=== PATIENT | female | born 1950 | race Caucasian/White ===

== ENCOUNTER 2018-03-05 07:33 | Inpatient (IN) | payer OTHER, MEDICAID ==
[~2018-03-05] VITALS: Ht 160 cm; Wt 87.1 kg
[2018-03-05 09:11] LABS: Basophils # (auto) 0.1 uL; Basophils % (auto) 0.6 % (0.0-2.0); Eosinophils # (auto) 0.1 uL; Eosinophils % (auto) 0.7 % (0.0-7.0); Hematocrit 45.7 % (36.0-46.0); Hemoglobin 15.3 g/dL (12.2-16.2); Lymphocytes # (auto) 1.7 uL; Lymphocytes % (auto) 20.3 % (10.0-50.0); Mean Corpuscular Hemoglobin 31.3 pg (28.0-32.0); Mean Corpuscular Hgb Conc. 33.6 g/dL (32.0-36.0); Mean Corpuscular Volume 93.2 fL (80.0-100.0); Monocytes # (auto) 0.4 uL; Neutrophils # (auto) 6.3 uL; Neutrophils % (auto) 73.4 % (37.0-80.0); Platelet Count (auto) 206 10^3/uL (140-450); Red Cell Distribution Width 13.5 % (11.8-14.3); White Blood Cell 8.5 10^3/uL (4.4-10.8)
[2018-03-05 09:29] LABS: Urine Bacteria NONE SEEN /hpf (None Seen); Urine Blood Negative /uL (Negative); Urine Specific Gravity 1.038 (1.001-1.035); Urine WBC 1 /hpf (0 - 5)
[2018-03-05 09:31] LABS: Alanine Aminotransferase 12 U/L (13-56); Albumin 3.5 g/dL (3.4-5.0); Alkaline Phosphatase 94 U/L (45-117); Anion Gap 10 (5-15); Aspartate Aminotransferase 13 U/L (15-37); BUN/Creatinine Ratio 16.8; Bilirubin, Total 0.3 mg/dL (0.2-1.0); Blood Urea Nitrogen 20 mg/dL (7-18); Calcium 8.4 mg/dL (8.5-10.1); Carbon Dioxide 22 mmol/L (21-32); Chloride 103 mmol/L (98-107); GFR African American 58 mL/min; GFR Non-African American 48 mL/min; Magnesium 2.2 mg/dL (1.6-2.6); Potassium 4.4 mmol/L (3.5-5.1); Sodium 135 mmol/L (136-145); Total Protein 7.2 g/dL (6.4-8.2)
[2018-03-05 09:39] LABS: Glucose 492 mg/dL (74-106)
[2018-03-05] MEDS ORDERED: SODIUM CHLORIDE 0.9% 1,000 ML IV ONE (09:48)
[2018-03-05 10:32] LABS: INR 0.92 (0.9-1.15); Prothrombin Time 9.9 sec (9.27-12.13)
[2018-03-05] MEDS ORDERED: SODIUM CHLORIDE 0.9% 1,000 ML IV SCH ×2 (11:19→13:50)
[2018-03-05] MEDS ORDERED: ACETAMINOPHEN 500 MG TAB PO PRN (11:30)
[2018-03-05] MEDS ORDERED: PROMETHAZINE HCL 25 MG/ML 1ML IV PRN (11:30)
[2018-03-05] MEDS ORDERED: NITROGLYCERIN 0.4 MG SL TAB SL PRN (11:30)
[2018-03-05] MEDS ORDERED: MORPHINE SULFATE 8mg/ml INJ SDV IV PRN ×2 (11:30)
[2018-03-05] MEDS ORDERED: DEXTROSE (50%) 50ML SYRG IV PRN (11:30)
[2018-03-05] MEDS ORDERED: HYDROcodone-ACET 5/325MG TAB PO PRN (11:30)
[2018-03-05] MEDS ORDERED: LEVOFLOXACIN 500MG 100 ML IV ONE (11:45)
[2018-03-05] MEDS ORDERED: PANTOPRAZOLE 40 MG TAB PO ONE (11:45)
[2018-03-05] MEDS: ACCU-CHEK COMFORT CURVE STRIP VI SCH ×2 (12:05→16:03)
[2018-03-05] MEDS ORDERED: metroNIDAZOLE 500MG/100ML 100 ML IV SCH (14:00)
[2018-03-05 14:27] LABS: Hematocrit 42.4 % (36.0-46.0)
[2018-03-05 14:41] VITALS: BP 142/83
[2018-03-06] MEDS ORDERED: PANTOPRAZOLE 40 MG TAB PO SCH (10:00)
[2018-03-06] MEDS ORDERED: LEVOFLOXACIN 500MG 100 ML IV SCH (10:00)
== END 2018-03-05 16:41 | disposition left against medical advice (07) | DRG 378 ==
LOC: ER 07:37 → TELE 07:38
PROVIDERS: ADMIT Internal Medicine; ATTEND Internal Medicine
DX: K92.2 Gastrointestinal hemorrhage, unspecified (principal); A69.20 Lyme disease, unspecified; E11.21 Type 2 diabetes mellitus with diabetic nephropathy; K76.89 Other specified diseases of liver; E11.65 Type 2 diabetes mellitus with hyperglycemia; F41.9 Anxiety disorder, unspecified; Z53.21 Procedure and treatment not carried out due to patient leaving prior to being seen by health care provider; K52.3 Indeterminate colitis; I25.10 Atherosclerotic heart disease of native coronary artery without angina pectoris; F29 Unspecified psychosis not due to a substance or known physiological condition; I25.2 Old myocardial infarction; Z88.1 Allergy status to other antibiotic agents; Z88.8 Allergy status to other drugs, medicaments and biological substances
CPT/HCPCS: 36415; 71046; 74176; 80053; 81001; 82378; 83036; 83690; 83735; 84443; 84484; 85014; 85018; 85025; 85045; 85610; 85652; 85730; 86141; 86850; 86900; 86901; 93005; 94761; 96361; 96365; J3490

== ENCOUNTER 2018-07-28 00:04 | Inpatient (IN) | payer OTHER, MEDICAID ==
[~2018-07-28] VITALS: Ht 162.6 cm; Wt 94.3 kg
[2018-07-28] MEDS ORDERED: ACETAMINOPHEN 650 mg PER 20 mL UD PO ONE (00:30)
[2018-07-28] MEDS ORDERED: ACETAMINOPHEN 325 MG TAB PO ONE (00:30)
[2018-07-28] MEDS ORDERED: LEVOFLOXACIN 500MG 100 ML IV ONE (02:00)
[2018-07-28] MEDS ORDERED: PIPERACILLIN-TAZO 4.5GM 100 ML IV ONE (02:00)
[2018-07-28] MEDS ORDERED: SODIUM CHLORIDE 0.9% 2,000 ML IV ONE (02:00)
[2018-07-28 02:38] LABS: Platelet Count (auto) 76 10^3/uL (140-450)
[2018-07-28 02:39] LABS: Hematocrit 43.8 % (36.0-46.0); Hemoglobin 14.1 g/dL (12.2-16.2); Mean Corpuscular Hgb Conc. 32.2 g/dL (32.0-36.0); Mean Corpuscular Volume 82.7 fL (80.0-100.0); Red Blood Cells 5.29 10^6/uL (4.0-5.20); Red Cell Distribution Width 18.6 % (11.8-14.3); White Blood Cell 13.8 10^3/uL (4.4-10.8)
[2018-07-28 02:43] LABS: Mean Corpuscular Hemoglobin 26.8 pg (28.0-32.0)
[2018-07-28 02:52] LABS: Partial Thromboplastin Time 28.9 sec (23.78-33.04); Prothrombin Time 10.7 sec (9.27-12.13)
[2018-07-28 02:54] LABS: Basophils % (manual) 0 (0.0-2.0); Blast Cells 0; Eosinophils % (manual) 0 (0-7); Metamyelocytes % 0; Myelocytes % 0; Promyelocytes % 0; Reactive Lymphocytes 0
[2018-07-28 02:57] LABS: Amylase 18 U/L (25-115); Lipase 81 U/L (73-393)
[2018-07-28 02:58] LABS: Albumin 2.3 g/dL (3.4-5.0); BUN/Creatinine Ratio 24.7; Calcium 8.6 mg/dL (8.5-10.1); Magnesium 1.9 mg/dL (1.6-2.6); Potassium 3.7 mmol/L (3.5-5.1)
[2018-07-28 03:03] LABS: Bilirubin, Total 0.6 mg/dL (0.2-1.0); Total Protein 6.9 g/dL (6.4-8.2)
[2018-07-28 03:45] LABS: Band Neutrophils % (manual) 6; Lymphocytes % (manual) 2 (10.0-50.0); Monocytes % (manual) 4 (0-12)
[2018-07-28] MEDS ORDERED: diphenhdrAMINE HCL 25 MG CAP PO ONE ×2 (03:57→04:00)
[2018-07-28 05:44] LABS: Urine Bacteria MANY /hpf (None Seen); Urine Blood TRACE /uL (Negative); Urine Mucus FEW (None Seen); Urine Specific Gravity 1.017 (1.001-1.035); Urine WBC 39 /hpf (0 - 5)
[2018-07-28] MEDS ORDERED: HYDROcodone-ACET 5/325MG TAB PO PRN (07:00)
[2018-07-28] MEDS ORDERED: DEXTROSE (50%) 50ML SYRG IV PRN ×2 (07:00→12:45)
[2018-07-28] MEDS ORDERED: ONDANSETRON HCL 4 MG/2 ML VIAL IV PRN (07:00)
[2018-07-28] MEDS ORDERED: ACETAMINOPHEN 325 MG TAB PO PRN (07:00)
[2018-07-28] MEDS: SODIUM CHLORIDE 0.9% 1,000 ML IV SCH ×2 (07:35→18:12)
[2018-07-28] MEDS: FAMOTIDINE 20 MG TAB PO SCH ×2 (11:09→22:00)
[2018-07-28] MEDS: LEVOFLOXACIN 500MG 100 ML IV SCH (11:09)
[2018-07-28] MEDS ORDERED: ACCU-CHEK COMFORT CURVE STRIP VI SCH (12:00)
[2018-07-28] MEDS: metroNIDAZOLE 500MG/100ML 100 ML IV SCH ×2 (14:43→22:00)
[2018-07-28 17:00] VITALS: BP 142/70
[2018-07-28] MEDS: ACCU-CHEK COMFORT CURVE STRIP VI SCH ×2 (17:00→22:00)
[2018-07-28] MEDS: InsuLIN REG 1unit/0.01ml Soln (100units/ml) SC SCH ×2 (17:00→22:00)
[2018-07-28 17:15] VITALS: BP 142/70
[2018-07-28 22:00] VITALS: BP 110/58
[2018-07-28] MEDS ORDERED: INSULIN LANTUS (GLARGINE) 1 /0.01ml (100units/ml) SC SCH (22:00)
[2018-07-28] MEDS: SODIUM BICARBONATE 650 MG TAB PO SCH (22:00)
[2018-07-29 05:00] VITALS: BP 142/75
[2018-07-29 05:56] LABS: Basophils # (auto) 0 uL; Basophils % (auto) 0.4 % (0.0-2.0); Eosinophils # (auto) 0.1 uL; Eosinophils % (auto) 1.2 % (0.0-7.0); Hematocrit 44.6 % (36.0-46.0); Hemoglobin 14.5 g/dL (12.2-16.2); Lymphocytes # (auto) 0.7 uL; Lymphocytes % (auto) 8.8 % (10.0-50.0); Mean Corpuscular Hemoglobin 27.5 pg (28.0-32.0); Mean Corpuscular Hgb Conc. 32.5 g/dL (32.0-36.0); Mean Corpuscular Volume 84.5 fL (80.0-100.0); Monocytes # (auto) 0.6 uL; Monocytes % (auto) 8.1 % (0.0-12.0); Neutrophils # (auto) 6.3 uL; Neutrophils % (auto) 81.5 % (37.0-80.0); Platelet Count (auto) 76 10^3/uL (140-450); Red Blood Cells 5.28 10^6/uL (4.0-5.20); Red Cell Distribution Width 19.6 % (11.8-14.3); White Blood Cell 7.8 10^3/uL (4.4-10.8)
[2018-07-29] MEDS: metroNIDAZOLE 500MG/100ML 100 ML IV SCH ×3 (05:57→21:51)
[2018-07-29] MEDS: InsuLIN REG 1unit/0.01ml Soln (100units/ml) SC SCH ×4 (05:57→21:52)
[2018-07-29] MEDS: SODIUM CHLORIDE 0.9% 1,000 ML IV SCH ×2 (05:57→17:48)
[2018-07-29] MEDS: ACCU-CHEK COMFORT CURVE STRIP VI SCH ×4 (05:58→21:52)
[2018-07-29 06:21] LABS: Albumin 2.1 g/dL (3.4-5.0); Calcium 8.6 mg/dL (8.5-10.1); Potassium 3.5 mmol/L (3.5-5.1)
[2018-07-29 06:26] LABS: Bilirubin, Total 0.6 mg/dL (0.2-1.0); Total Protein 6.4 g/dL (6.4-8.2)
[2018-07-29 08:13] VITALS: BP_SYST 107; BP_SYST 115; BP_DIAS 65; BP_DIAS 68
[2018-07-29] MEDS: SODIUM BICARBONATE 650 MG TAB PO SCH ×2 (09:47→21:51)
[2018-07-29] MEDS: FAMOTIDINE 20 MG TAB PO SCH ×2 (09:47→21:51)
[2018-07-29] MEDS: LEVOFLOXACIN 500MG 100 ML IV SCH (09:48)
[2018-07-29 14:00] VITALS: BP 137/73
[2018-07-29 16:49] VITALS: BP 120/73
[2018-07-29 22:00] VITALS: BP 146/84
[2018-07-29] MEDS ORDERED: INSULIN LANTUS (GLARGINE) 1 /0.01ml (100units/ml) SC SCH (22:00)
[2018-07-30] MEDS: SODIUM CHLORIDE 0.9% 1,000 ML IV SCH (02:50)
[2018-07-30 04:51] VITALS: BP 176/88
[2018-07-30 04:58] VITALS: BP 133/72
[2018-07-30] MEDS: metroNIDAZOLE 500MG/100ML 100 ML IV SCH ×2 (05:30→14:12)
[2018-07-30 05:44] LABS: Hematocrit 38.7 % (36.0-46.0); Hemoglobin 12.7 g/dL (12.2-16.2); Mean Corpuscular Hemoglobin 27.2 pg (28.0-32.0); Mean Corpuscular Hgb Conc. 32.9 g/dL (32.0-36.0); Mean Corpuscular Volume 82.8 fL (80.0-100.0); Platelet Count (auto) 98 10^3/uL (140-450); Red Blood Cells 4.68 10^6/uL (4.0-5.20); Red Cell Distribution Width 19.6 % (11.8-14.3); White Blood Cell 6.4 10^3/uL (4.4-10.8)
[2018-07-30 05:51] LABS: Blast Cells 0; Myelocytes % 0; Promyelocytes % 0; Reactive Lymphocytes 0
[2018-07-30 06:02] LABS: BUN/Creatinine Ratio 17.7; Calcium 8.4 mg/dL (8.5-10.1); Potassium 3.4 mmol/L (3.5-5.1)
[2018-07-30] MEDS: InsuLIN REG 1unit/0.01ml Soln (100units/ml) SC SCH (06:26)
[2018-07-30] MEDS: ACCU-CHEK COMFORT CURVE STRIP VI SCH (06:27)
[2018-07-30 06:54] LABS: Band Neutrophils % (manual) 5; Basophils % (manual) 0 (0.0-2.0); Eosinophils % (manual) 2 (0-7); Lymphocytes % (manual) 29 (10.0-50.0); Metamyelocytes % 2; Monocytes % (manual) 8 (0-12)
[2018-07-30 09:00] VITALS: BP 127/66
[2018-07-30] MEDS ORDERED: PSYLLIUM PWD 6 GM PKG GT ONE (09:15)
[2018-07-30] MEDS ORDERED: CHLORPROPAMIDE PO SCH (10:00)
[2018-07-30] MEDS: LEVOFLOXACIN 500MG 100 ML IV SCH (10:24)
[2018-07-30] MEDS: FAMOTIDINE 20 MG TAB PO SCH (10:25)
[2018-07-30] MEDS: SODIUM BICARBONATE 650 MG TAB PO SCH (10:25)
[2018-07-30 13:00] VITALS: BP 157/82
[2018-07-30 17:00] VITALS: BP 148/79
== END 2018-07-30 17:45 | disposition home or self-care (01) | DRG 871 ==
LOC: EDUNIT# 00:04 → EDBD 00:04 → ER 00:06 → OVERFLOW 00:07 → WEST WING 17:02
PROVIDERS: ADMIT Nurse Practitioner; ATTEND Internal Medicine
DX: A41.9 Sepsis, unspecified organism (principal); E43 Unspecified severe protein-calorie malnutrition; N39.0 Urinary tract infection, site not specified; E87.1 Hypo-osmolality and hyponatremia; N85.00 Endometrial hyperplasia, unspecified; E86.0 Dehydration; E11.9 Type 2 diabetes mellitus without complications; K58.0 Irritable bowel syndrome with diarrhea; Z68.35 Body mass index [BMI] 35.0-35.9, adult; Z88.8 Allergy status to other drugs, medicaments and biological substances; I10 Essential (primary) hypertension; J44.9 Chronic obstructive pulmonary disease, unspecified; Z83.3 Family history of diabetes mellitus
CPT/HCPCS: 36415; 36600; 71045; 74176; 76856; 80048; 80053; 81001; 82150; 82805; 82962; 83605; 83690; 83735; 83880; 84484; 85007; 85025; 85027; 85610; 85730; 86141; 87040; 87077; 87086; 87186; 93005; 93306; 96361; 96365; 99291; G0378; J1956; J3490

== ENCOUNTER 2018-08-21 09:41 | Emergency (ER) | payer OTHER, MEDICAID ==
[~2018-08-21] VITALS: Ht 160 cm; Wt 79.4 kg
[~2018-08-21 09:41] MED LIST: [UNRECOGNIZED DRUG - CODE] PO
[2018-08-21 10:49] LABS: Basophils # (auto) 0 uL; Basophils % (auto) 0.6 % (0.0-2.0); Eosinophils # (auto) 0.1 uL; Eosinophils % (auto) 2.1 % (0.0-7.0); Hemoglobin 14.7 g/dL (12.2-16.2); Lymphocytes # (auto) 1.3 uL; Lymphocytes % (auto) 20.2 % (10.0-50.0); Mean Corpuscular Hemoglobin 28.7 pg (28.0-32.0); Mean Corpuscular Hgb Conc. 32.7 g/dL (32.0-36.0); Mean Corpuscular Volume 87.8 fL (80.0-100.0); Monocytes # (auto) 0.3 uL; Monocytes % (auto) 5.1 % (0.0-12.0); Neutrophils # (auto) 4.8 uL; Nucleated Red Blood Cells % 0.1 %; Platelet Count (auto) 236 10^3/uL (140-450); Red Blood Cells 5.12 10^6/uL (4.0-5.20); White Blood Cell 6.7 10^3/uL (4.4-10.8)
[2018-08-21 11:24] LABS: Red Cell Distribution Width 22.1 % (11.8-14.3)
[2018-08-21 11:34] LABS: Urine Bacteria NONE SEEN /hpf (None Seen); Urine Blood Negative /uL (Negative); Urine Mucus FEW (None Seen); Urine Specific Gravity 1.017 (1.001-1.035); Urine WBC 8 /hpf (0 - 5)
[2018-08-21 12:09] VITALS: BP 153/99
== END 2018-08-21 12:38 | disposition home or self-care (01) ==
LOC: ER 09:43
DX: Z45.2 Encounter for adjustment and management of vascular access device (principal); Z00.00 Encounter for general adult medical examination without abnormal findings; E11.9 Type 2 diabetes mellitus without complications; Z90.89 Acquired absence of other organs; Z88.1 Allergy status to other antibiotic agents; Z88.8 Allergy status to other drugs, medicaments and biological substances; Z88.6 Allergy status to analgesic agent
CPT/HCPCS: 36415; 81001; 82962; 85025

== ENCOUNTER 2018-09-02 04:55 | Emergency (ER) | payer OTHER, MEDICAID ==
[~2018-09-02] VITALS: Ht 160 cm; Wt 77.1 kg
[2018-09-02 05:00] VITALS: BP 153/91
[2018-09-02] MEDS ORDERED: KETOROLAC TROMETH 30 MG/ML 1ML VIAL IM ONE (07:00)
[2018-09-02] MEDS ORDERED: HYDROcodone-ACET 5/325MG TAB PO ONE (07:00)
[2018-09-02] MEDS ORDERED: SODIUM CHLORIDE 0.9% 2,000 ML IV ONE (07:34)
[2018-09-02] MEDS ORDERED: InsuLIN REG 1unit/0.01ml Soln (100units/ml) IV ONE (07:45)
== END 2018-09-02 08:15 | disposition home or self-care (01) ==
LOC: ER 04:59
DX: M54.41 Lumbago with sciatica, right side (principal); E11.9 Type 2 diabetes mellitus without complications; Z98.890 Other specified postprocedural states; Z88.1 Allergy status to other antibiotic agents; Z88.6 Allergy status to analgesic agent; Z88.8 Allergy status to other drugs, medicaments and biological substances
CPT/HCPCS: 72131; 73700; 82962; 96372; 96374; 99284; J1885

== ENCOUNTER 2018-09-03 09:21 | Emergency (ER) | payer OTHER, MEDICAID ==
[~2018-09-03] VITALS: Ht 175.3 cm; Wt 77.1 kg
[2018-09-03 09:55] VITALS: BP 144/91
[2018-09-03] MEDS ORDERED: NALBUPHINE HCL 10 MG/1ml INJECTION IM ONE (10:45)
== END 2018-09-03 11:15 | disposition home or self-care (01) ==
LOC: ER 09:24
DX: M48.061 Spinal stenosis, lumbar region without neurogenic claudication (principal); M54.16 Radiculopathy, lumbar region; E11.9 Type 2 diabetes mellitus without complications; Z88.1 Allergy status to other antibiotic agents; Z88.6 Allergy status to analgesic agent; Z88.8 Allergy status to other drugs, medicaments and biological substances
CPT/HCPCS: 93005; 96372; 99283; J2300

== ENCOUNTER 2018-09-28 08:53 | Emergency (ER) | payer OTHER, MEDICAID ==
[~2018-09-28] VITALS: Ht 162.6 cm; Wt 68.9 kg
[2018-09-28 09:14] VITALS: BP 169/106
[2018-09-28 09:49] LABS: Basophils # (auto) 0 uL; Basophils % (auto) 0.5 % (0.0-2.0); Eosinophils # (auto) 0.1 uL; Eosinophils % (auto) 0.9 % (0.0-7.0); Hematocrit 50.2 % (36.0-46.0); Hemoglobin 16.4 g/dL (12.2-16.2); Lymphocytes # (auto) 1.2 uL; Lymphocytes % (auto) 19.2 % (10.0-50.0); Mean Corpuscular Hemoglobin 29.4 pg (28.0-32.0); Mean Corpuscular Hgb Conc. 32.7 g/dL (32.0-36.0); Mean Corpuscular Volume 89.9 fL (80.0-100.0); Monocytes # (auto) 0.3 uL; Monocytes % (auto) 4.8 % (0.0-12.0); Neutrophils # (auto) 4.7 uL; Neutrophils % (auto) 74.6 % (37.0-80.0); Platelet Count (auto) 251 10^3/uL (140-450); Red Blood Cells 5.59 10^6/uL (4.0-5.20); White Blood Cell 6.3 10^3/uL (4.4-10.8)
[2018-09-28 10:36] LABS: Albumin 3.9 g/dL (3.4-5.0); Calcium 9.7 mg/dL (8.5-10.1); Potassium 4.2 mmol/L (3.5-5.1)
[2018-09-28 10:40] LABS: BUN/Creatinine Ratio 10.6; Bilirubin, Total 0.4 mg/dL (0.2-1.0); Total Protein 7.8 g/dL (6.4-8.2)
[2018-09-28] MEDS ORDERED: SODIUM CHLORIDE 0.9% 1,000 ML IV ONE (11:45)
[2018-09-28 12:50] LABS: Urine Bacteria FEW /hpf (None Seen); Urine Blood TRACE /uL (Negative); Urine Specific Gravity 1.041 (1.001-1.035); Urine WBC 4 /hpf (0 - 5)
== END 2018-09-28 16:15 | disposition left against medical advice (07) ==
LOC: ER 08:53
DX: R10.84 Generalized abdominal pain (principal); E11.65 Type 2 diabetes mellitus with hyperglycemia; I10 Essential (primary) hypertension; E87.1 Hypo-osmolality and hyponatremia; E78.5 Hyperlipidemia, unspecified; M19.90 Unspecified osteoarthritis, unspecified site; Z87.440 Personal history of urinary (tract) infections; Z88.1 Allergy status to other antibiotic agents; Z88.6 Allergy status to analgesic agent; Z88.8 Allergy status to other drugs, medicaments and biological substances
CPT/HCPCS: 36415; 74176; 80053; 81001; 85025; 93005

== ENCOUNTER 2019-01-01 16:41 | Inpatient (IN) | payer OTHER, MEDICAID ==
[~2019-01-01] VITALS: Ht 162.6 cm; Wt 63.9 kg
[2019-01-01 17:43] LABS: Basophils # (auto) 0 uL; Basophils % (auto) 0.5 % (0.0-2.0); Eosinophils # (auto) 0 uL; Eosinophils % (auto) 0.1 % (0.0-7.0); Hemoglobin 15.3 g/dL (12.2-16.2); Lymphocytes # (auto) 1.3 uL; Lymphocytes % (auto) 13.9 % (10.0-50.0); Mean Corpuscular Hemoglobin 32.6 pg (28.0-32.0); Monocytes # (auto) 0.4 uL; Monocytes % (auto) 4.9 % (0.0-12.0); Neutrophils # (auto) 7.4 uL; Neutrophils % (auto) 80.6 % (37.0-80.0); Nucleated Red Blood Cells % 0.1 %; Platelet Count (auto) 371 10^3/uL (140-450); Red Blood Cells 4.69 10^6/uL (4.0-5.20); Red Cell Distribution Width 13.8 % (11.8-14.3); White Blood Cell 9.2 10^3/uL (4.4-10.8)
[2019-01-01 17:58] LABS: Albumin 3.4 g/dL (3.4-5.0); Anion Gap 15 (5-15); Blood Urea Nitrogen 10 mg/dL (7-18); Calcium 9.3 mg/dL (8.5-10.1); Carbon Dioxide 24 mmol/L (21-32); Chloride 96 mmol/L (98-107); Glucose 307 mg/dL (74-106); Sodium 135 mmol/L (136-145)
[2019-01-01 18:04] LABS: Alanine Aminotransferase 12 U/L (13-56); Alkaline Phosphatase 102 U/L (45-117); Aspartate Aminotransferase 13 U/L (15-37); BUN/Creatinine Ratio 15.4; Bilirubin, Total 0.6 mg/dL (0.2-1.0); GFR African American 116 mL/min; GFR Non-African American 96 mL/min; Total Protein 6.9 g/dL (6.4-8.2)
[2019-01-01 18:15] LABS: Potassium 2.5 mmol/L (3.5-5.1)
[2019-01-01] MEDS ORDERED: SODIUM CHLORIDE 0.9% 500 ML IV ONE (18:45)
[2019-01-01] MEDS ORDERED: POTASSIUM CHL 20MEQ/100ML 100 ML IV ONE (18:45)
[2019-01-02 00:21] LABS: Urine Bacteria MANY /hpf (None Seen); Urine Blood Negative /uL (Negative); Urine Hyaline Cast FEW /lpf (0 - 2); Urine Specific Gravity 1.024 (1.001-1.035); Urine WBC 142 /hpf (0 - 5)
[2019-01-02 00:30] LABS: Amphetamine Screen, Urine NEGATIVE (NEGATIVE); Barbiturate Scree,Urine NEGATIVE (NEGATIVE); Benzodiazephine Screen, Urine NEGATIVE (NEGATIVE); Cannabinoid Screen, Urine NEGATIVE (NEGATIVE); Cocaine Screen, Urine NEGATIVE (NEGATIVE); Opiate Scree,Urine NEGATIVE (NEGATIVE); Phencyclidine Screen, Urine NEGATIVE (NEGATIVE)
[2019-01-02] MEDS ORDERED: cefTRIAXone 1GM/50ML D5W 50 ML IV ONE (01:00)
[2019-01-02] MEDS ORDERED: PIPERACILLIN-TAZOB 3.375GM 100 ML IV ONE (01:15)
[2019-01-02] MEDS ORDERED: NITROGLYCERIN 0.4 MG SL TAB SL PRN (03:00)
[2019-01-02] MEDS ORDERED: hydrALAZINE HCL 20 MG/ML VL IV ONE (03:00)
[2019-01-02] MEDS ORDERED: MORPHINE SULF INJ 2 MG/ML SYRINGE 1ML IV PRN (03:00)
[2019-01-02] MEDS ORDERED: ACETAMINOPHEN 325 MG TAB PO PRN (03:00)
[2019-01-02] MEDS ORDERED: HYDROcodone-ACET 5/325MG TAB PO PRN (03:00)
[2019-01-02] MEDS ORDERED: cloNIDine HCL 0.1 MG TAB PO PRN (03:00)
[2019-01-02] MEDS ORDERED: ONDANSETRON HCL 4 MG/2 ML VIAL IV PRN (03:00)
[2019-01-02] MEDS ORDERED: LORazepam 2MG/ML-1ML VIAL IV ONE ×2 (03:30→08:45)
[2019-01-02] MEDS: SODIUM CHLORIDE 0.9% 1,000 ML IV SCH ×2 (03:37→16:42)
[2019-01-02] MEDS: POTASSIUM CHL 20MEQ/100ML 100 ML IV SCH ×4 (04:01→18:12)
[2019-01-02] MEDS: FAMOTIDINE 20 MG TAB PO SCH ×2 (09:27→21:59)
[2019-01-02] MEDS ORDERED: ERTAPENEM SOD INJ 1 GM in SODIUM CHL 0.9% 50 ML IV SCH (10:00)
[2019-01-02 12:11] LABS: BUN/Creatinine Ratio 13.6; Calcium 8.7 mg/dL (8.5-10.1)
[2019-01-02 12:15] LABS: Potassium 2.7 mmol/L (3.5-5.1)
[2019-01-02] MEDS ORDERED: MORPHINE SULFATE 4 MG/ML SYR/VIAL IV PRN (12:15)
[2019-01-02] MEDS ORDERED: POTASSIUM CHL 20 Meq TABLET PO ONE (12:15)
[2019-01-02] MEDS ORDERED: ACETAMINOPHEN 650 MG RECT SUPP PR PRN (20:00)
[2019-01-02 21:49] LABS: Folate (Folic Acid) 9.23 ng/mL (5.38-24)
[2019-01-03] MEDS: SODIUM CHLORIDE 0.9% 1,000 ML IV SCH ×2 (02:26→16:28)
[2019-01-03 07:15] LABS: Basophils # (auto) 0 uL; Basophils % (auto) 0.4 % (0.0-2.0); Eosinophils # (auto) 0 uL; Eosinophils % (auto) 0.6 % (0.0-7.0); Hemoglobin 13.7 g/dL (12.2-16.2); Lymphocytes # (auto) 1.1 uL; Lymphocytes % (auto) 16.4 % (10.0-50.0); Mean Corpuscular Hemoglobin 33.2 pg (28.0-32.0); Mean Corpuscular Hgb Conc. 34.2 g/dL (32.0-36.0); Monocytes # (auto) 0.5 uL; Monocytes % (auto) 7.8 % (0.0-12.0); Neutrophils # (auto) 4.9 uL; Neutrophils % (auto) 74.8 % (37.0-80.0); Platelet Count (auto) 274 10^3/uL (140-450); Red Blood Cells 4.13 10^6/uL (4.0-5.20); Red Cell Distribution Width 13.5 % (11.8-14.3); White Blood Cell 6.5 10^3/uL (4.4-10.8)
[2019-01-03 07:41] LABS: Albumin 2.8 g/dL (3.4-5.0); Calcium 8.4 mg/dL (8.5-10.1); Potassium 3.1 mmol/L (3.5-5.1)
[2019-01-03 07:44] LABS: Bilirubin, Total 0.6 mg/dL (0.2-1.0); Total Protein 6.4 g/dL (6.4-8.2)
[2019-01-03] MEDS: FAMOTIDINE 20 MG TAB PO SCH ×2 (10:00→21:05)
[2019-01-03 16:52] VITALS: BP 127/65
[2019-01-03] MEDS ORDERED: POTASSIUM CHL 20 Meq TABLET PO ONE (17:00)
[2019-01-03] MEDS: ERTAPENEM SOD INJ 1 GM in SODIUM CHL 0.9% 50 ML IV SCH (18:33)
[2019-01-03 18:39] VITALS: BP 127/65
[2019-01-03] MEDS ORDERED: POTASSIUM CHLORIDE 40 MEQ, LIDOCAINE 1% (LOCAL ANESTH.) 4 ML in SODIUM CHL 0.9% 100 ML IV ONE (19:30)
[2019-01-03] MEDS ORDERED: diphenhdrAMINE HCL 50 MG/1 ML VL IV PRN (20:45)
[2019-01-03 22:49] VITALS: BP 152/117
[2019-01-04 05:49] VITALS: BP 164/79
[2019-01-04] MEDS: SODIUM CHLORIDE 0.9% 1,000 ML IV SCH ×2 (07:55→17:41)
[2019-01-04 08:00] VITALS: BP 159/87
[2019-01-04 09:00] VITALS: BP 159/87
[2019-01-04] MEDS: FAMOTIDINE 20 MG TAB PO SCH ×2 (10:00→21:02)
[2019-01-04] MEDS ORDERED: LORazepam 2MG/ML-1ML VIAL IV PRN (11:15)
[2019-01-04] MEDS ORDERED: hydrALAZINE HCL 20 MG/ML VL IV PRN (11:30)
[2019-01-04] MEDS: LORazepam 2MG/ML-1ML VIAL IV PRN ×2 (13:01→18:35)
[2019-01-04 13:06] VITALS: BP 112/64
[2019-01-04 17:00] VITALS: BP 138/79
[2019-01-04] MEDS: ERTAPENEM SOD INJ 1 GM in SODIUM CHL 0.9% 50 ML IV SCH (18:02)
[2019-01-05] MEDS: LORazepam 2MG/ML-1ML VIAL IV PRN ×4 (02:08→11:45)
[2019-01-05 05:00] VITALS: BP 127/70
[2019-01-05] MEDS: SODIUM CHLORIDE 0.9% 1,000 ML IV SCH ×3 (05:50→22:08)
[2019-01-05 06:18] LABS: Basophils # (auto) 0.1 uL; Basophils % (auto) 0.8 % (0.0-2.0); Eosinophils # (auto) 0 uL; Eosinophils % (auto) 0.2 % (0.0-7.0); Hematocrit 43.6 % (36.0-46.0); Hemoglobin 14.6 g/dL (12.2-16.2); Lymphocytes # (auto) 0.9 uL; Lymphocytes % (auto) 12.5 % (10.0-50.0); Mean Corpuscular Hemoglobin 32.4 pg (28.0-32.0); Mean Corpuscular Hgb Conc. 33.4 g/dL (32.0-36.0); Mean Corpuscular Volume 97.3 fL (80.0-100.0); Monocytes # (auto) 0.4 uL; Monocytes % (auto) 5.5 % (0.0-12.0); Neutrophils # (auto) 5.7 uL; Platelet Count (auto) 274 10^3/uL (140-450); Red Blood Cells 4.49 10^6/uL (4.0-5.20); Red Cell Distribution Width 13.2 % (11.8-14.3); White Blood Cell 7.1 10^3/uL (4.4-10.8)
[2019-01-05 07:04] LABS: BUN/Creatinine Ratio 10.4; Calcium 8.8 mg/dL (8.5-10.1); Magnesium 1.7 mg/dL (1.6-2.6)
[2019-01-05 07:38] LABS: Potassium 2.8 mmol/L (3.5-5.1)
[2019-01-05] MEDS: POTASSIUM CHL 20MEQ/100ML 100 ML IV SCH ×2 (08:41→11:24)
[2019-01-05 09:00] VITALS: BP 133/74
[2019-01-05] MEDS: FAMOTIDINE 20 MG TAB PO SCH ×2 (09:50→21:17)
[2019-01-05 13:00] VITALS: BP 128/81
[2019-01-05] MEDS ORDERED: LEVETIRACETAM INJ 1,000 MG in D5W 5% 100 ML IV ONE (13:00)
[2019-01-05 15:10] LABS: INR 1.1 (0.9-1.15); Partial Thromboplastin Time 25.9 sec (23.78-33.04); Prothrombin Time 11.7 sec (9.27-12.13)
[2019-01-05] MEDS ORDERED: LIDOCAINE 1% (LOCAL ANESTH.) PF 5ml SDV ID ONE (16:00)
[2019-01-05] MEDS ORDERED: IOHEXOL 350 MG/ML 100ML IJ ONE (16:09)
[2019-01-05 17:00] VITALS: BP 122/78
[2019-01-05] MEDS: ERTAPENEM SOD INJ 1 GM in SODIUM CHL 0.9% 50 ML IV SCH (18:31)
[2019-01-05 20:00] VITALS: BP 146/88
[2019-01-05] MEDS ORDERED: TPN PER PHARMACY 0 ML IV SCH (20:15)
[2019-01-05] MEDS: LEVETIRACETAM INJ 500 MG in D5W 5% 100 ML IV SCH (21:11)
[2019-01-05] MEDS: SODIUM CHLOR 0.9% PF (SALINE LOCK) 10ML VIAL/SYR IV SCH (21:17)
[2019-01-05] MEDS ORDERED: AMINO ACID INFUSION IN D10W 1,000 ML IV NR (21:45)
[2019-01-05 22:00] VITALS: BP 146/88
[2019-01-05] MEDS ORDERED: DEXTROSE (50%) 50ML SYRG IV SCH (22:30)
[2019-01-06] VITALS (7 sets, daily range): BP systolic 90–152; BP diastolic 56–87
[2019-01-06] MEDS: ACCU-CHEK COMFORT CURVE STRIP VI SCH ×5 (00:28→23:35)
[2019-01-06] MEDS: LORazepam 2MG/ML-1ML VIAL IV PRN ×5 (03:04→14:05)
[2019-01-06] MEDS: InsuLIN REG 1unit/0.01ml Soln (100units/ml) SC SCH ×5 (05:23→23:42)
[2019-01-06 06:33] LABS: Albumin 2.4 g/dL (3.4-5.0); BUN/Creatinine Ratio 15.4; Bilirubin, Total 0.4 mg/dL (0.2-1.0); Calcium 8.6 mg/dL (8.5-10.1); Magnesium 1.6 mg/dL (1.6-2.6); Phosphorus 2.9 mg/dL (2.5-4.90); Pre Albumin 12.1 mg/dL (20.0-40.0); Total Protein 5.5 g/dL (6.4-8.2)
[2019-01-06 06:37] LABS: Potassium 2.8 mmol/L (3.5-5.1)
[2019-01-06] MEDS: POTASSIUM CHL 20MEQ/100ML 100 ML IV SCH ×2 (06:52→09:39)
[2019-01-06 08:33] LABS: Basophils # (auto) 0 uL; Basophils % (auto) 0.6 % (0.0-2.0); Eosinophils # (auto) 0 uL; Eosinophils % (auto) 0.5 % (0.0-7.0); Hemoglobin 13.6 g/dL (12.2-16.2); Mean Corpuscular Hemoglobin 32.1 pg (28.0-32.0); Mean Corpuscular Hgb Conc. 33.1 g/dL (32.0-36.0); Monocytes # (auto) 0.4 uL; Monocytes % (auto) 6.7 % (0.0-12.0); Neutrophils # (auto) 3.8 uL; Neutrophils % (auto) 73.2 % (37.0-80.0); Nucleated Red Blood Cells % 0.1 %; Platelet Count (auto) 230 10^3/uL (140-450); Red Blood Cells 4.23 10^6/uL (4.0-5.20); Red Cell Distribution Width 13.4 % (11.8-14.3); White Blood Cell 5.2 10^3/uL (4.4-10.8)
[2019-01-06] MEDS: LEVETIRACETAM INJ 500 MG in D5W 5% 100 ML IV SCH (09:42)
[2019-01-06] MEDS: FAMOTIDINE 20 MG TAB PO SCH ×2 (10:00→22:00)
[2019-01-06] MEDS: SODIUM CHLOR 0.9% PF (SALINE LOCK) 10ML VIAL/SYR IV SCH ×2 (10:00→22:16)
[2019-01-06] MEDS ORDERED: HYDROcodone-ACET 5/325MG TAB PO PRN (17:00)
[2019-01-06] MEDS ORDERED: POTASSIUM CHLORIDE 80 MEQ, LIDOCAINE 1% (LOCAL ANESTH.) 6 ML in SODIUM CHL 0.9% 500 ML IV ONE (17:00)
[2019-01-06] MEDS ORDERED: MORPHINE SULFATE 4 MG/ML SYR/VIAL IV PRN (17:00)
[2019-01-06] MEDS ORDERED: LORazepam 2MG/ML-1ML VIAL IV PRN (17:30)
[2019-01-06] MEDS ORDERED: cefTRIAXone 1GM/50ML D5W 50 ML IV SCH (18:00)
[2019-01-06] MEDS: MAGNESIUM SULFATE 1GM/100ML 100 ML IV SCH ×3 (18:01→22:17)
[2019-01-06] MEDS ORDERED: LEVETIRACETAM INJ 1,000 MG in D5W 5% 100 ML IV ONE (18:15)
[2019-01-06] MEDS ORDERED: POTASSIUM CHLORIDE 40 MEQ, LIDOCAINE 1% (LOCAL ANESTH.) 4 ML in SODIUM CHL 0.9% 100 ML IV ONE (19:15)
[2019-01-06] MEDS ORDERED: TPN PER PHARMACY IV NR ×9 (20:00)
[2019-01-06] MEDS: SODIUM CHLORIDE 0.9% 1,000 ML IV SCH (22:00)
[2019-01-07 05:12] VITALS: BP 91/58
[2019-01-07] MEDS: ACCU-CHEK COMFORT CURVE STRIP VI SCH ×2 (05:57→12:00)
[2019-01-07] MEDS: InsuLIN REG 1unit/0.01ml Soln (100units/ml) SC SCH ×2 (06:03→12:00)
[2019-01-07 07:10] LABS: Albumin 2.2 g/dL (3.4-5.0); BUN/Creatinine Ratio 22.1; Bilirubin, Total 0.3 mg/dL (0.2-1.0); Calcium 8.3 mg/dL (8.5-10.1); Magnesium 2.8 mg/dL (1.6-2.6); Phosphorus 4.5 mg/dL (2.5-4.90); Total Protein 5.5 g/dL (6.4-8.2)
[2019-01-07 07:35] LABS: Potassium 6.3 mmol/L (3.5-5.1)
[2019-01-07 08:00] VITALS: BP 152/87
[2019-01-07] MEDS ORDERED: CALCIUM GLUC 4.65meq/50ml D5AE 50 ML IV ONE (08:00)
[2019-01-07] MEDS ORDERED: InsuLIN REG 1unit/0.01ml Soln (100units/ml) IV ONE (08:00)
[2019-01-07] MEDS ORDERED: SODIUM BICARBONATE 8.4 % INJ 50ML VIAL IV ONE (08:00)
[2019-01-07 08:49] VITALS: BP 111/64
[2019-01-07] MEDS ORDERED: LEVETIRACETAM INJ 1,000 MG in D5W 5% 100 ML IV SCH (10:00)
[2019-01-07 10:12] LABS: Magnesium 2.1 mg/dL (1.6-2.6); Phosphorus 1.5 mg/dL (2.5-4.90); Potassium 3.3 mmol/L (3.5-5.1)
[2019-01-07] MEDS ORDERED: POTASSIUM PHOSP 22MEQ(15MMOLE) in NS 100 ML IV ONE (10:45)
[2019-01-07 12:14] VITALS: BP 108/63
[2019-01-07 15:44] VITALS: BP 152/87
[2019-01-07 16:37] VITALS: BP 132/81
[2019-01-07] MEDS ORDERED: TPN PER PHARMACY IV NR ×11 (20:00)
== END 2019-01-07 17:18 | disposition hospice, home (50) | DRG 64 ==
LOC: ER 16:41 → EDUNIT# 16:41 → EDBD 16:41 → TELE 01-02 02:59 → TELE-WESTW 01-03 16:44
PROVIDERS: ADMIT Nurse Practitioner; ATTEND Internal Medicine
PROC: 02HV33Z Insertion of Infusion Device into Superior Vena Cava, Percutaneous Approach (ICD-10-PCS; principal; 2019-01-05)
DX: I63.40 Cerebral infarction due to embolism of unspecified cerebral artery (principal); G93.41 Metabolic encephalopathy; S32.059A Unspecified fracture of fifth lumbar vertebra, initial encounter for closed fracture; N39.0 Urinary tract infection, site not specified; E11.65 Type 2 diabetes mellitus with hyperglycemia; E87.6 Hypokalemia; F02.80 Dementia in other diseases classified elsewhere, unspecified severity, without behavioral disturbance, psychotic disturbance, mood disturbance, and anxiety; G30.9 Alzheimer's disease, unspecified; G40.901 Epilepsy, unspecified, not intractable, with status epilepticus; I10 Essential (primary) hypertension; E78.5 Hyperlipidemia, unspecified; E86.0 Dehydration; M19.90 Unspecified osteoarthritis, unspecified site; B96.20 Unspecified Escherichia coli [E. coli] as the cause of diseases classified elsewhere; B96.1 Klebsiella pneumoniae [K. pneumoniae] as the cause of diseases classified elsewhere; W18.39XA Other fall on same level, initial encounter; Z66 Do not resuscitate; Z82.49 Family history of ischemic heart disease and other diseases of the circulatory system; Z86.73 Personal history of transient ischemic attack (TIA), and cerebral infarction without residual deficits; Z87.440 Personal history of urinary (tract) infections; Y93.89 Activity, other specified; Y92.89 Other specified places as the place of occurrence of the external cause; Y99.8 Other external cause status
CPT/HCPCS: 36415; 36569; 70450; 70496; 70498; 70551; 71045; 80048; 80053; 80307; 81001; 82010; 82040; 82607; 82746; 82962; 83605; 83735; 83880; 84100; 84132; 84443; 84478; 84484; 85025; 85610; 85730; 87040; 87086; 87088; 87186; 95819; 96361; 96365; G0378; J0610; J0696; J1335; J1815; J2001; J2405; J2543; J3480; J7060; J7131